=== PATIENT | male | born 1980 | race Hispanic/Latino ===

== ENCOUNTER 2021-07-15 19:06 | Emergency (ER) | payer SELFPAY ==
[~2021-07-15] VITALS: Ht 175.3 cm; Wt 133.8 kg
[~2021-07-15 19:06] MED LIST: Z.0.VICODIN 5-5001 E PO
[2021-07-15] MEDS ORDERED: CASIRIVIMAB/IMDEVIMAB 10 ML in SODIUM CHLORIDE 0.9% 100 ML IV ONE (19:30)
[2021-07-15] MEDS ORDERED: SODIUM CHLORIDE 0.9% 100 ML ONE (19:36)
[2021-07-15] MEDS ORDERED: ACETAMINOPHEN 325 MG TAB ONE (19:36)
[2021-07-15] MEDS ORDERED: ACETAMINOPHEN 325 MG TAB PO ONE (19:45)
== END 2021-07-15 21:14 | disposition home or self-care (01) ==
LOC: ER 19:28
DX: U07.1 COVID-19 (principal); R50.9 Fever, unspecified; R05.9 Cough, unspecified; R19.7 Diarrhea, unspecified
CPT/HCPCS: 99282; J7050